=== PATIENT | female | born 1975 | race Caucasian/White ===

== ENCOUNTER 2021-11-16 01:56 | Observation (INO) ==
[2021-11-16 03:37] LABS: Basophils # 0.1 K/mcL (0.0-0.2); Basophils % 0.4 %; Eosinophils # 0.2 K/mcL (0.0-0.6); Eosinophils % 1.3 %; Hemoglobin 15.2 g/dL (11.5-15.4); Immature Granulocytes % 0.4 % (0-4); Lymphocytes # 3.2 K/mcL (0.6-4.6); Lymphocytes % 20.1 %; Mean Corpuscular HGB Conc 32.3 g/dL (31.6-35.5); Mean Corpuscular Hemoglobin 30.2 pg (28.0-33.3); Mean Corpuscular Volume 93.4 fL (83.0-100.0); Mean Platelet Volume 10.3 fL (9.4-12.4); Monocytes # 0.9 K/mcL (0.0-1.3); Monocytes % 5.7 %; Neutrophils # 11.3 K/mcL (1.6-8.9); Platelet Count 256 K/mcL (140-400); Red Blood Count 5.03 M/mcL (3.82-4.97); Red Cell Distribution Width 15.6 % (11.5-14.5); Segmented Neutrophils % 72.1 %; White Blood Count 15.7 K/mcL (4.3-11.1)
[2021-11-16 03:51] LABS: BUN/Creatinine Ratio 10 (6-26); Blood Urea Nitrogen 11 mg/dL (6-20); Calcium 9.3 mg/dL (8.6-10.3); Carbon Dioxide 29 mEq/L (23-29); Chloride 98 mEq/L (98-107); Glucose 112 mg/dL (70-105); Osmolality,Calculated 282 (280-300); Potassium 3.7 mEq/L (3.5-5.1); Sodium 136 mEq/L (136-145); Troponin I 0.08 ng/mL (< 0.04); eGFR For African Americans > 60 (> 60); eGFR For Non-African Americans 54 (> 60)
[2021-11-16] MEDS ORDERED: *HR* Heparin 5,000 UNIT/ML VIAL IVP ONE (05:02)
[2021-11-16] MEDS ORDERED: *HR* Heparin 5,000 UNIT/ML VIAL IVP PRN (05:17)
[2021-11-16] MEDS ORDERED: Ondansetron ODT 4 MG TAB.RAPDIS SL PRN (05:18)
[2021-11-16] MEDS ORDERED: Naloxone 0.4 MG/ML INJ IVP PRN (05:18)
[2021-11-16] MEDS ORDERED: Melatonin 3 MG TABLET PO PRN (05:18)
[2021-11-16] MEDS ORDERED: Dextrose Gel 15 GM/37.5 ML TUBE PO PRN ×2 (05:26)
[2021-11-16] MEDS ORDERED: *HR* Dextrose 50 % in Water (Syg) 50 ML SYRINGE IVP PRN (05:26)
[2021-11-16] MEDS ORDERED: D5% in Water 1,000 ML IVC PRN (05:26)
[2021-11-16] MEDS: Heparin 25,000UNIT/250ML 1/2NS 25,000 UNIT/250 ML IV.SOLN IVC SCH ×2 (05:37→23:54)
[2021-11-16 05:47] LABS: Heparin anti-factor XA UFH < 0.04 IU/mL (0.30-0.70)
[2021-11-16 05:48] LABS: Prothrombin Time 11.6 Seconds (9.4-12.1)
[2021-11-16 06:15] LABS: Adenovirus Not Detected (Not Detect); Bordetella Pertussis Not Detected (Not Detect); Chlamydophila pneumoniae Not Detected (Not Detect); Coronavirus 229E Not Detected (Not Detect); Coronavirus HKU1 Not Detected (Not Detect); Coronavirus NL63 Not Detected (Not Detect); Coronavirus OC43 Not Detected (Not Detect); Human Metapneumovirus Not Detected (Not Detect); Human Rhinovirus/Enterovirus Not Detected (Not Detect); Influenza A Subtype 2009 H1 Not Detected (Not Detect); Influenza B Not Detected (Not Detect); Mycoplasma pneumoniae Not Detected (Not Detect); Parainfluenza Virus 1 Not Detected (Not Detect); Parainfluenza Virus 2 Not Detected (Not Detect); Parainfluenza Virus 3 Not Detected (Not Detect); Parainfluenza Virus 4 Not Detected (Not Detect); Respiratory Syncytial Virus Not Detected (Not Detect); SARS-CoV-2 Not Detected (Not Detect)
[2021-11-16] MEDS ORDERED: Perflutren Lipid Microsphere 1.3 ML in 0.9 % Sodium Chloride 8.7 ML IVP PRN (07:07)
[2021-11-16] MEDS: Insulin LISPRO 300 UNITS/3 ML VIAL SUBQ SCH ×3 (08:25→17:26)
[2021-11-16] MEDS: hydroCHLOROthiazide 25 MG TABLET PO SCH (08:56)
[2021-11-16] MEDS: Gabapentin 300 MG CAPSULE PO SCH ×3 (08:56→19:50)
[2021-11-16] MEDS ORDERED: Famotidine 20 MG TABLET PO SCH (09:00)
[2021-11-16] MEDS: *HR* Heparin 5,000 UNIT/ML VIAL IVP PRN ×2 (12:43→19:57)
[2021-11-16] MEDS ORDERED: tiZANidine 4 MG TABLET PO ONE (14:22)
[2021-11-16] MEDS: Metoprolol 100 MG TABLET PO SCH ×2 (15:24→19:51)
[2021-11-16] MEDS: Furosemide 20 MG TABLET PO SCH (18:59)
[2021-11-16] MEDS: Famotidine 20 MG TABLET PO SCH (19:51)
[2021-11-16] MEDS: Budesonide/Formoterol 160/4.5 1 PUFF INH IH SCH (20:14)
[2021-11-16] MEDS ORDERED: tiZANidine 4 MG TABLET PO PRN (21:00)
[2021-11-16 22:26] LABS: Amphetamine Screen,Urine Negative ng/mL (Cutoff=1000); Barbiturate Screen,Urine Negative ng/mL (Cutoff=200); Benzodiazepines Screen,Urine Negative ng/mL (Cutoff=200); Cannabinoid Screen,Urine Negative ng/mL (Cutoff = 50); Cocaine Screen,Urine Negative ng/mL (Cutoff= 300); Opiate Screen,Urine Negative ng/mL (Cutoff=300); Phencyclidine Screen,Urine Negative ng/mL (Cutoff=25)
[2021-11-17] MEDS: Insulin LISPRO 300 UNITS/3 ML VIAL SUBQ SCH ×5 (00:04→23:44)
[2021-11-17] MEDS ORDERED: *HR* LORazepam 2 MG/ML VIAL IVP ONE (00:33)
[2021-11-17 03:02] LABS: Hematocrit 45.6 % (35.3-44.9); Hemoglobin 14.5 g/dL (11.5-15.4); Mean Corpuscular HGB Conc 31.8 g/dL (31.6-35.5); Mean Corpuscular Hemoglobin 29.7 pg (28.0-33.3); Mean Corpuscular Volume 93.4 fL (83.0-100.0); Mean Platelet Volume 10.2 fL (9.4-12.4); Platelet Count 221 K/mcL (140-400); Red Blood Count 4.88 M/mcL (3.82-4.97); Red Cell Distribution Width 15.5 % (11.5-14.5); White Blood Count 8.7 K/mcL (4.3-11.1)
[2021-11-17 03:13] LABS: BUN/Creatinine Ratio 13 (6-26); Blood Urea Nitrogen 15 mg/dL (6-20); Carbon Dioxide 33 mEq/L (23-29); Chloride 98 mEq/L (98-107); Glucose 204 mg/dL (70-105); Osmolality,Calculated 291 (280-300); Potassium 3.8 mEq/L (3.5-5.1); Sodium 137 mEq/L (136-145); eGFR For African Americans > 60 (> 60); eGFR For Non-African Americans 52 (> 60)
[2021-11-17] MEDS: *HR* Heparin 5,000 UNIT/ML VIAL IVP PRN ×2 (05:17→18:27)
[2021-11-17] MEDS: Budesonide/Formoterol 160/4.5 1 PUFF INH IH SCH ×2 (07:39→19:43)
[2021-11-17] MEDS: Multivit/Ca/Min/Fe/FA 1 TAB TABLET PO SCH (10:24)
[2021-11-17] MEDS: Furosemide 20 MG TABLET PO SCH ×2 (10:24→16:38)
[2021-11-17] MEDS: Metoprolol 100 MG TABLET PO SCH ×3 (10:24→21:28)
[2021-11-17] MEDS: hydroCHLOROthiazide 25 MG TABLET PO SCH (10:24)
[2021-11-17] MEDS: lisinopriL 20 MG TABLET PO SCH (10:24)
[2021-11-17] MEDS: Gabapentin 300 MG CAPSULE PO SCH ×3 (10:24→21:28)
[2021-11-17] MEDS: Heparin 25,000UNIT/250ML 1/2NS 25,000 UNIT/250 ML IV.SOLN IVC SCH (18:09)
[2021-11-17] MEDS: Famotidine 20 MG TABLET PO SCH (21:29)
[2021-11-17] MEDS: Insulin DETEMIR 100 UNIT/ML X5UNITS SUBQ SCH (21:29)
[2021-11-18] MEDS ORDERED: *HR* LORazepam 2 MG/ML VIAL IVP ONE (02:15)
[2021-11-18 02:46] LABS: BUN/Creatinine Ratio 14 (6-26); Blood Urea Nitrogen 15 mg/dL (6-20); Carbon Dioxide 31 mEq/L (23-29); Chloride 96 mEq/L (98-107); Glucose 332 mg/dL (70-105); Osmolality,Calculated 292 (280-300); Potassium 4.3 mEq/L (3.5-5.1); Sodium 134 mEq/L (136-145); eGFR For African Americans > 60 (> 60); eGFR For Non-African Americans 53 (> 60)
[2021-11-18] MEDS: Heparin 25,000UNIT/250ML 1/2NS 25,000 UNIT/250 ML IV.SOLN IVC SCH (05:33)
[2021-11-18] MEDS: Insulin LISPRO 300 UNITS/3 ML VIAL SUBQ SCH ×2 (05:37→11:46)
[2021-11-18 06:56] VITALS: TEMP 97.7
[2021-11-18] MEDS ORDERED: Regadenoson 0.4 MG/5 ML SYRINGE IVP ONE (07:28)
[2021-11-18] MEDS: Budesonide/Formoterol 160/4.5 1 PUFF INH IH SCH (07:47)
[2021-11-18] MEDS: hydroCHLOROthiazide 25 MG TABLET PO SCH (08:30)
[2021-11-18] MEDS: Furosemide 20 MG TABLET PO SCH (08:30)
[2021-11-18] MEDS: Multivit/Ca/Min/Fe/FA 1 TAB TABLET PO SCH (08:30)
[2021-11-18] MEDS: Metoprolol 100 MG TABLET PO SCH ×2 (08:30→14:12)
[2021-11-18] MEDS: Insulin DETEMIR 100 UNIT/ML X5UNITS SUBQ SCH (08:30)
[2021-11-18] MEDS: lisinopriL 20 MG TABLET PO SCH (08:30)
[2021-11-18] MEDS: Gabapentin 300 MG CAPSULE PO SCH ×2 (08:30→14:12)
[2021-11-18 11:45] VITALS: BP 118/74; PULSE 76; O2SAT 96
== END 2021-11-18 15:55 | disposition home or self-care (01) ==
LOC: EMEROOARM 01:56 → 2ANU 01:56 → SUATTDRO 06:20 → 2ANU 07:50
PROVIDERS: ADMIT Student in an Organized Health Care Education/Training Program; ATTEND Student in an Organized Health Care Education/Training Program

== ENCOUNTER 2022-03-17 05:04 | Observation (INO) ==
[2022-03-17] MEDS ORDERED: Naloxone 0.4 MG/ML INJ IVP PRN (07:42)
[2022-03-17] MEDS ORDERED: Acetaminophen 325 MG TABLET PO PRN (07:42)
[2022-03-17 08:45] LABS: BUN/Creatinine Ratio 6 (6-26); Blood Urea Nitrogen 5 mg/dL (6-20); Calcium 8.2 mg/dL (8.6-10.3); Carbon Dioxide 37 mEq/L (23-29); Chloride 100 mEq/L (98-107); Glucose 159 mg/dL (70-105); Osmolality,Calculated 295 (280-300); Sodium 142 mEq/L (136-145)
[2022-03-17] MEDS ORDERED: D5% in Water 1,000 ML IVC PRN (09:09)
[2022-03-17] MEDS ORDERED: *HR* Dextrose 50 % in Water (Syg) 50 ML SYRINGE IVP PRN (09:09)
[2022-03-17] MEDS ORDERED: Dextrose Gel 15 GM/37.5 ML TUBE PO PRN ×2 (09:09)
[2022-03-17] MEDS ORDERED: Furosemide 20 MG TABLET PO SCH (10:30)
[2022-03-17] MEDS ORDERED: Metoprolol 100 MG TABLET PO SCH (10:30)
[2022-03-17 11:23] VITALS: TEMP 98.2; O2SAT 94
[2022-03-17] MEDS ORDERED: Insulin LISPRO 300 UNITS/3 ML VIAL SUBQ SCH ×2 (11:30→21:00)
[2022-03-17 12:33] VITALS: BP 158/80; PULSE 112
[2022-03-17] MEDS ORDERED: Gabapentin 300 MG CAPSULE PO SCH (15:00)
== END 2022-03-17 15:03 | disposition home or self-care (01) ==
LOC: 3BNU 05:04 → EMEROOARM 05:04 → SUATTDRO 06:15 → 3BNU 06:30
PROVIDERS: ADMIT Internal Medicine; ATTEND Internal Medicine